=== PATIENT | male | born 1970 | race Caucasian/White ===

== ENCOUNTER 2017-06-30 22:34 | Inpatient (IN) | payer SELFPAY ==
[~2017-06-30] VITALS: Ht 172.7 cm; Wt 120.0 kg
[2017-06-30 22:35] VITALS: BP 129/79; PULSE 112; RESP 18; TEMP 100.1; O2SAT 96
[2017-06-30] MEDS ORDERED: SODIUM CHLOR 0.9% 1000 ML INJ 1,000 ML IV ONE (23:15)
[2017-06-30] MEDS ORDERED: MORPHINE SULFATE 4 MG/ML INJ IV PUSH ONE (23:15)
[2017-06-30] MEDS ORDERED: ONDANSETRON HCL 4 MG/2 ML VIAL IV ONE (23:15)
--- NOTE | 2017-06-30 23:30 | PD ---
HPI Chief Complaint: Abdominal Pain Time Seen by Provider: 22:59 Travel History International Travel<30 days: No Contact w/Intl Traveler<30days: No Traveled to known affect area: No History of Present Illness HPI The patient is a 47 year old male who presents to the [facility] emergency department with a history of abdominal pain and he reports began on Saturday. He reports that the pain is coming and going. He reports that the pain is sharp in character. He reports that eating seems to make it worse. He reports the pain is similar to when he had a bacterial colitis in the past. His last BM was Saturday and small. He took magnesium citrate and today had diarrhea x2. He reports having n/v 4-5 x on Saturday. He reports that he has not taken his usual medications over the last 2 days due to nausea. On review of systems, the patient denies any recent fevers, cough, congestion, neck pain, chest pain, shortness of breath, urinary symptoms, or neurologic symptoms. [facility] Past Medical History Narrative Medical The patient's past medical history is significant for hypertension, hyperlipidemia, colitis. Autoimmune Disease: No Cardiovascular Problems: Yes (HTN) High Cholesterol: Yes Headaches: Yes (MIGRAINS) Past Surgical History Narrative Surgical The patient's past surgical history is significant for tonsillectomy and adenoidectomy. Oral Surgery: Yes (TONSILECTOMY, MOLARS REMOVED) Social History Alcohol Use: No Tobacco Use: No Substance Use: No Allergies-Medications (Allergen,Severity, Reaction): Coded Allergies: No Known Allergies (Verified Allergy, Severe, 08/14/04) Reported Meds & Prescriptions Reported Meds & Active Scripts Active Reported Lovastatin 20 Mg Tab 20 Mg PO DAILY Amlodipine (Amlodipine Besylate) 5 Mg Tab 5 Mg PO HS Lisinopril 20 Mg Tab 20 Mg PO DAILY Metformin (Metformin HCl) 500 Mg Tab 500 Mg PO DAILY With a meal Hydrochlorothiazide 25 Mg Tab 25 Mg PO DAILY Topamax (Topiramate) 50 Mg Tab 50 Mg PO BID Review of Systems Except as stated in HPI: all other systems reviewed are Neg General / Constitutional: No: Fever Eyes: No: Visual changes HENT: No: Headaches Cardiovascular: No: Chest Pain or Discomfort Respiratory: No: Shortness of Breath Gastrointestinal: Positive: Nausea, Vomiting, Diarrhea, Abdominal Pain, Constipation, Changes in Bowel Habits, No: Hematemesis, Hematochezia, Indigestion, Loss of Appetite Genitourinary: No: Dysuria Musculoskeletal: No: Pain Skin: No Rash Neurologic: No: Weakness Psychiatric: No: Depression Endocrine: No: Polydipsia Hematologic/Lymphatic: No: Easy Bruising Physical Exam Narrative General: The patient is a well-developed well-nourished male, uncomfortable appearing on arrival, diaphoretic, otherwise in no acute distress. Head and Neck exam: Head is normocephalic atraumatic. Eyes: EOMI, pupils are equal round and reactive to light. Nose: Midline septum with pink mucous membranes Mouth: Dentition unremarkable. Moist mucus membranes. Posterior oropharynx is not erythematous. No tonsillar hypertrophy. Uvula midline. Airway patent. Neck: No palpable lymphadenopathy. No nuchal rigidity. No thyromegaly. Cardiovascular: Sinus tachycardia in the low 100 without murmurs, gallops, or rubs. No pulse deficit to the extremities and simultaneous auscultation and palpation of his radial artery. Lungs: Clear to auscultation bilaterally. No wheezes, rhonchi, or rales. Abdomen: Soft, tenderness on palpation of the right lower quadrant of the abdomen, tenderness is noted on palpation of McBurney's point. No other tenderness on palpation of the other quadrants of the abdomen. Normal bowel sounds are audible. No guarding, rebound, or rigidity. Negative [place] sign. Extremities: No clubbing, cyanosis, or edema. 2+ pulses in all 4 extremities. No calf tenderness on palpation. Back: No costovertebral angle tenderness to palpation. Neurologic Exam: Grossly nonfocal. Skin Exam: No rash noted. Intact skin that is warm and dry. Data Data Last Documented VS Vital Signs Date Time Temp Pulse Resp B/P Pulse Ox O2 Delivery O2 Flow Rate FiO2 06/30/17 22:35 100.1 112 18 129/79 96 Room Air Orders Electrocardiogram (06/30/17 23:06) Complete Blood Count With Diff (06/30/17 23:06) Comprehensive Metabolic Panel (06/30/17 23:06) C-Reactive Protein (Crp) (06/30/17 23:06) Lipase (06/30/17 23:06) Urinalysis - C+S If Indicated (06/30/17 23:06) Westergren Sedimentation Rate (06/30/17 23:06) Magnesium (Mg) (06/30/17 23:06) Chest, Single Ap (06/30/17 23:06) Ct Abd/Pel W Iv Contrast(Rout) (06/30/17 23:06) Iv Access Insert/Monitor (06/30/17 23:06) Ecg Monitoring (06/30/17 23:06) Oximetry (06/30/17 23:06) Drug Screen, Random Urine (06/30/17 23:06) Alcohol (Ethanol) (06/30/17 23:06) Sodium Chlor 0.9% 1000 Ml Inj (Ns 1000 M (06/30/17 23:15) Ondansetron Inj (Zofran Inj) (06/30/17 23:15) Morphine Inj (Morphine Inj) (06/30/17 23:15) Lactic Acid (06/30/17 23:07) Ketorolac Inj (Toradol Inj) (06/30/17 23:45) Piperacil-Tazo 3.375 Gm Premix (Zosyn 3. (07/01/17 00:45) Sodium Chlorid 0.9% 500 Ml Inj (Ns 500 M (07/01/17 00:45) Iohexol 350 Inj (Omnipaque 350 Inj) (07/01/17 00:52) Morphine Inj (Morphine Inj) (07/01/17 01:30) Admit Order (Ed Use Only) (07/01/17 01:30) Labs Laboratory Tests Test 06/30/17 06/30/17 23:15 23:40 White Blood Count 16.5 TH/MM3 Red Blood Count 5.65 MIL/MM3 Hemoglobin 16.0 GM/DL Hematocrit 47.2 % Mean Corpuscular Volume 83.5 FL Mean Corpuscular Hemoglobin 28.2 PG Mean Corpuscular Hemoglobin 33.8 % Concent Red Cell Distribution Width 14.3 % Platelet Count 258 TH/MM3 Mean Platelet Volume 10.7 FL Neutrophils (%) (Auto) 88.3 % Lymphocytes (%) (Auto) 4.5 % Monocytes (%) (Auto) 7.1 % Eosinophils (%) (Auto) 0.0 % Basophils (%) (Auto) 0.1 % Neutrophils # (Auto) 14.6 TH/MM3 Lymphocytes # (Auto) 0.7 TH/MM3 Monocytes # (Auto) 1.2 TH/MM3 Eosinophils # (Auto) 0.0 TH/MM3 Basophils # (Auto) 0.0 TH/MM3 CBC Comment DIFF FINAL Differential Comment Lactic Acid Level 1.6 mmol/L Erythrocyte Sedimentation Rate 3 mm/hr Sodium Level 137 MEQ/L Potassium Level 4.0 MEQ/L Chloride Level 105 MEQ/L Carbon Dioxide Level 23.8 MEQ/L Anion Gap 8 MEQ/L Blood Urea Nitrogen 12 MG/DL Creatinine 1.13 MG/DL Estimat Glomerular Filtration 70 ML/MIN Rate Random Glucose 136 MG/DL Calcium Level 9.3 MG/DL Magnesium Level 2.8 MG/DL Total Bilirubin 0.8 MG/DL Aspartate Amino Transf 15 U/L (AST/SGOT) Alanine Aminotransferase 33 U/L (ALT/SGPT) Alkaline Phosphatase 57 U/L C-Reactive Protein 23.80 MG/DL Total Protein 8.0 GM/DL Albumin 4.2 GM/DL Lipase 98 U/L Ethyl Alcohol Level LESS THAN 3 MG/DL Urine Color YELLOW Urine Turbidity HAZY Urine pH 7.5 Urine Specific [place] 1.015 Urine Protein 30 mg/dL Urine Glucose (UA) NEG mg/dL Urine Ketones NEG mg/dL Urine Occult Blood NEG Urine Nitrite NEG Urine Bilirubin NEG Urine Urobilinogen LESS THAN 2.0 MG/DL Urine Leukocyte Esterase NEG Urine RBC 1 /hpf Urine WBC 2 /hpf Urine Squamous Epithelial <1 /hpf Cells Urine Amorphous Sediment RARE Urine Mucus FEW /lpf Microscopic Urinalysis Comment CULT NOT INDICATED Urine Opiates Screen NEG Urine Barbiturates Screen NEG Urine Amphetamines Screen NEG Urine Benzodiazepines Screen NEG Urine Cocaine Screen NEG Urine Cannabinoids Screen NEG [facility] Medical Decision Making Medical Screen Exam Complete: Yes Emergency Medical Condition: Yes Medical Record Reviewed: Yes Interpretation(s) Last Impressions Chest X-Ray 06/30/172305 Signed Impressions: Service Date/Time: Friday, June 30, 2017 23:10 - CONCLUSION: No acute disease. Álvaro Franco MD Abdomen/Pelvis CT 06/30/172305 Signed Impressions: Service Date/Time: Saturday, July 01, 2017 00:39 - CONCLUSION: 1. Acute appendicitis with inflammatory change in the right lower quadrant with abnormal tubular structure with multiple calcified appendicoliths. There is no free air or drainable fluid collection. 2. Mild ileus bowel gas pattern. 3. Mild hepatic steatosis. Álvaro Franco MD Differential Diagnosis Appendicitis, versus diverticulitis, versus colitis, versus pyelonephritis, versus kidney stone Narrative Course During the course of the patients emergency department visit, the patients history, examination, and differential diagnosis were reviewed with the patient. The patient had IV access obtained and blood work sent for analysis. The patient was placed on a school bus monitor with oximetry and blood pressure monitoring. An ECG was done on arrival. The patient's ECG reveals a sinus rhythm heart rate of 98, nonspecific T-wave abnormalities, no acute ST segment elevation or depression. The patient was initially provided normal saline 1 L IV fluid bolus, morphine 4 g IV, Zofran formal grams IV. The patient continued pain and was given Toradol 15 mg IV. The patients laboratory studies were reviewed and remarkable for a white count of 16.5, hemoglobin 16, platelets 258 with 88.3 neutrophils, lymphocytes 4.5, sedimentation rate is 3. CMP is remarkable for a GFR 70, glucose 136, magnesium 2.8, lipase 98, C-reactive protein 23.8, lactic acid 1.6, urine drug screen is negative, alcohol less than 3, urinalysis shows 30 protein otherwise unremarkable. Radiology studies were reviewed and remarkable for a chest x-ray that shows no acute disease. CT scan of the abdomen and pelvis shows acute appendicitis with inflammatory changes in the right lower quadrant with abnormal tubular structure with multiple calcified appendicoliths. There is no free air or drainable fluid collection. Mild ileus bowel gas pattern, mild hepatic steatosis. The patient was given Zosyn 3.375 g IV. The patients results were discussed with the patient, including the plan of care. I explained that further testing and/ or monitoring is indicated based on the patients history, examination, and/ or laboratory findings. Therefore, I recommended admission for additional evaluation. The patient expressed understanding and was agreeable with this plan. The patient was admitted to the hospital in stable condition and sent to a bed under the care of the general surgeon. Physician Communication Physician Communication The patient's case is discussed with Dr. Edwards who did agree to admit the patient for further evaluation and treatment at this time. Diagnosis Primary Impression: Appendicitis Qualified Code: K35.3 - Acute appendicitis with localized peritonitis Admitting Information Admitting Physician Requests: Rebecca Smiley MD Jun 30, 2017 23:30
[2017-06-30 23:39] LABS: AUTOMATED NEUTROPHIL # 14.6 TH/MM3 (1.8-7.7); BASOPHIL % 0.1 % (0.0-2.0); HEMATOCRIT 47.2 % (39.0-51.0); HEMO FLAGS DIFF FINAL; LYMPH % 4.5 % (9.0-44.0); LYMPHOCYTE # 0.7 TH/MM3 (1.0-4.8); MEAN CELL VOLUME 83.5 FL (80.0-100.0); MEAN CORPUSCULAR HEMOGLOBIN 28.2 PG (27.0-34.0); MEAN CORPUSCULAR HGB CONC 33.8 % (32.0-36.0); MONO % 7.1 % (0.0-8.0); NEUT % 88.3 % (16.0-70.0); PLATELET COUNT 258 TH/MM3 (150-450); RED BLOOD COUNT 5.65 MIL/MM3 (4.50-5.90); RED CELL DISTRIBUTION WIDTH 14.3 % (11.6-17.2); WHITE BLOOD COUNT 16.5 TH/MM3 (4.0-11.0)
--- NOTE | 2017-06-30 23:40 | RADRPT ---
EXAM DATE/TIME: 06/30/2017 23:10 [facility] COMPARISON: No previous studies available for comparison. INDICATIONS : RLQ pain with lightheadedness and sweats. MEDICAL HISTORY : None. SURGICAL HISTORY : None. ENCOUNTER: Initial ACUITY: 1 day PAIN SCORE: 6/10 LOCATION: Bilateral chest FINDINGS: 2 AP erect portable views of the chest demonstrates a Midinspiratory view with symmetric aerated with out evidence of mass, infiltrate or effusion. Patient is rotated to the left. The study is apical trini dotic in technique. The cardiomediastinal contours are unremarkable. Osseous structures are intact. There is apparent eventration of the right hemidiaphragm. CONCLUSION: No acute disease. Álvaro Franco MD on June 30, 2017 at 23:37 Board Certified Radiologist. This report was verified electronically.
[2017-06-30] MEDS ORDERED: KETOROLAC TROMETHAMINE 30 MG/ML (IVP) VIAL IV PUSH ONE (23:45)
[2017-07-01] VITALS (8 sets, daily range): BP systolic 109–125; BP diastolic 55–78; PULSE 93–109; RESP 17–20; TEMP 95.9–99.1; O2SAT 93–97
[2017-07-01 00:05] LABS: ALT (GPT) 33 U/L (12-78); ANION GAP 8 MEQ/L (5-15); AST (GOT) 15 U/L (15-37); BICARBONATE 23.8 MEQ/L (21.0-32.0); BLOOD UREA NITROGEN 12 MG/DL (7-18); CHLORIDE 105 MEQ/L (98-107); GLOMERULAR FILTRATION RATE 70 ML/MIN (>89); MAGNESIUM 2.8 MG/DL (1.5-2.5); SODIUM (NA) 137 MEQ/L (136-145)
[2017-07-01 00:08] LABS: BLOOD, URINE NEG (NEG); COMMENT (UR) CULT NOT INDICATED; CULTURE IF INDICATED CULT NOT INDICATED; GLUCOSE,URINE NEG (NEG); KETONE, URINE NEG (NEG); MUCUS URINE FEW /lpf (OCC); NITRITE,URINE NEG (NEG); PH, URINE 7.5 (5.0-8.5); SQUAMOUS EPITHELIAL CELL URINE <1 /hpf (0-5); URINE COLOR YELLOW (YELLW/STRAW)
[2017-07-01 00:10] LABS: AMPHETAMINE, URINE NEG (NEG); BARBITURATES, URINE NEG (NEG); COCAINE, URINE NEG (NEG)
[2017-07-01 00:12] LABS: ALKALINE PHOSPHATASE 57 U/L (45-117); TOTAL BILIRUBIN ADULT 0.8 MG/DL (0.2-1.0)
[2017-07-01] MEDS ORDERED: PIPERACIL-TAZO 3.375 GM PREMIX 50 ML IV ONE (00:45)
[2017-07-01] MEDS ORDERED: SODIUM CHLORID 0.9% 500 ML INJ 500 ML IV ONE (00:45)
[2017-07-01] MEDS ORDERED: IOHEXOL 350 MG/ML 10 ML VIAL (for RAD DIAG) IV ONE (00:52)
--- NOTE | 2017-07-01 01:13 | RADRPT ---
EXAM DATE/TIME: 07/01/2017 00:39 [facility] COMPARISON: No previous studies available for comparison. INDICATIONS : Right sided abdominal pain. IV CONTRAST: 95 cc Omnipaque 350 (iohexol) IV ORAL CONTRAST: No oral contrast ingested. RADIATION DOSE: 25.15 CTDIvol (mGy) ; Patient body habitus MEDICAL HISTORY : Hypertension. SURGICAL HISTORY : None. ENCOUNTER: Initial ACUITY: 1 day PAIN SCALE: 4/10 LOCATION: Right abdomen TECHNIQUE: Volumetric scanning of the abdomen and pelvis was performed. Using automated exposure control and ad justment of the mA and/or kV according to patient size, radiation dose was kept as low as reasonably achievable to obtain optimal diagnostic quality images. DICOM format image data is available electro nically for review and comparison. FINDINGS: LOWER LUNGS: The visualized lower lungs are clear. LIVER: Homogeneous density without lesion. There is no dilation of the biliary tree. No calcified gallston es. The gallbladder is at the upper limits of normal in size. There is mild ataxia ptosis. SPLEEN: Normal size without lesion. PANCREAS: Within normal limits. KIDNEYS: Normal in size and shape. There is no mass, stone or hydronephrosis. ADRENAL GLANDS: Within normal limits. VASCULAR: There is no aortic aneurysm. BOWEL/MESENTERY: There is inflammatory change in the right lower quadrant with abnormal tubular structure distending f rom the cecum with multiple calcifications. This measures up to approximately 1.7 cm in diameter. The re is no free air or drainable fluid collection liquid stool is noted in the right colon with multipl e air-fluid levels. ABDOMINAL WALL: Within normal limits. RETROPERITONEUM: There is no lymphadenopathy. BLADDER: No wall thickening or mass. REPRODUCTIVE: Within normal limits. INGUINAL: There is no lymphadenopathy or hernia. MUSCULOSKELETAL: Within normal limits for patient age. CONCLUSION: 1. Acute appendicitis with inflammatory change in the right lower quadrant with abnormal tubular stru cture with multiple calcified appendicoliths. There is no free air or drainable fluid collection. 2. Mild ileus bowel gas pattern. 3. Mild hepatic steatosis. Álvaro Franco MD on July 01, 2017 at 1:08 Board Certified Radiologist. This report was verified electronically.
[2017-07-01] MEDS ORDERED: TOPA50TA7 PO (01:27)
[2017-07-01] MEDS ORDERED: AMLO5TAB2 PO (01:27)
[2017-07-01] MEDS ORDERED: METF500T PO (01:27)
[2017-07-01] MEDS ORDERED: LOVA20TA PO (01:27)
[2017-07-01] MEDS ORDERED: HYDR25TA5 PO (01:27)
[2017-07-01] MEDS ORDERED: LISI-515 PO (01:27)
[2017-07-01] MEDS ORDERED: MORPHINE SULFATE 4 MG/ML INJ IV PUSH ONE (01:30)
[2017-07-01] MEDS ORDERED: ONDANSETRON HCL 4 MG/2 ML VIAL IV PRN (02:00)
[2017-07-01] MEDS ORDERED: SODIUM CHLORIDE 0.9% FLUSH 10 ML FLUSH IV FLUSH PRN (02:00)
[2017-07-01] MEDS ORDERED: MORPHINE SULFATE 4 MG/ML INJ IV PUSH PRN (02:00)
[2017-07-01] MEDS: SODIUM CHLOR 0.9% 1000 ML INJ 1,000 ML IV SCH ×4 (02:19→19:35)
[2017-07-01] MEDS ORDERED: CHLORHEXIDINE GLUCONATE 2 % 1 PACK (2 CLOTHS) TOPICAL PRN (05:15)
[2017-07-01] MEDS ORDERED: SODIUM CHLORID 0.9% 500 ML IV PRN (05:15)
[2017-07-01] MEDS ORDERED: LACTATED RINGER'S 1000 ML IV PRN (05:15)
[2017-07-01] MEDS ORDERED: INSULIN HUMAN REGULAR 1,000 UNITS/10 ML VIAL SQ PRN (05:15)
[2017-07-01] MEDS ORDERED: POVIDONE IODINE 5% (ANTISEPSIS KIT) 4 APPLICATIONS EACH NARE PRN (05:15)
[2017-07-01] MEDS ORDERED: BUPIVACAINE/EPINEPHRINE 0.25% 50 ML VIAL ONE (05:47)
--- NOTE | 2017-07-01 06:29 | HHI.HP ---
HPI Service General Surgery Primary Care Physician No Primary Care Physician Admission Diagnosis Appendicitis Chief Complaint: Abdominal pain History of Present Illness Mr. Claudio is a 47 yo M who presents with abdominal pain present since Saturday associated with nausea and emesis. It is currently localized in the right lower quadrant. He has had some sort of bacterial GI infection in the past and thought that this was occurring; however, the pain persisted and he presented to the emergency department. He was noted to have leukocytosis and right lower quadrant tenderness. CT scan of the abdomen and pelvis reveals acute appendicitis. He denies past surgical history on the abdomen. His son underwent appendectomy here in 3 or 4 months ago. Review of Systems Constitutional: DENIES: Fever, Chills Eyes: DENIES: Eye inflammation, Eye pain Ears, nose, mouth, throat: DENIES: Throat pain, Hoarseness Respiratory: DENIES: Cough, Shortness of breath Cardiovascular: DENIES: Chest pain, Palpitations Gastrointestinal: COMPLAINS OF: Abdominal pain, Nausea Integumentary: DENIES: Pruritus, Rash Neurologic: DENIES: Seizures, Tremor Past Family Social History Past Medical History Obesity Hypertension Hyperlipidemia Past Surgical History Tonsillectomy Reported Medications Reported Meds & Active Scripts Active Reported Lovastatin 20 Mg Tab 20 Mg PO DAILY Amlodipine (Amlodipine Besylate) 5 Mg Tab 5 Mg PO HS Lisinopril 20 Mg Tab 20 Mg PO DAILY Metformin (Metformin HCl) 500 Mg Tab 500 Mg PO DAILY With a meal Hydrochlorothiazide 25 Mg Tab 25 Mg PO DAILY Topamax (Topiramate) 50 Mg Tab 50 Mg PO BID Allergies: Coded Allergies: No Known Allergies (Verified Allergy, Severe, 08/14/04) Active Ordered Medications Current Medications Medications (Trade) Dose Ordered Sig/Rambo Route Start Time Stop Time Status Last Admin (NS 1000 ml Inj) 1,000 ml @ 100 mls/hr Q10H IV 07/01/17 01:47 07/01/17 02:19 (NS Flush) 2 ml UNSCH PRN IV FLUSH 07/01/17 02:00 Sodium Chloride 2 ml 2 ml BID IV FLUSH 07/01/17 09:00 (Zosyn 3.375 Gm Premix) 50 ml @ 100 mls/hr Q6H IV 07/01/17 08:00 (Zofran Inj) 4 mg Q6H PRN IV 07/01/17 02:00 Morphine Sulfate 4 mg 4 mg Q3H PRN IV PUSH 07/01/17 02:00 Lactated Ringer's 1,000 ml @ 30 mls/hr Q24H PRN IV 07/01/17 05:15 07/04/17 05:14 (NS 500 ml Inj) 500 ml @ 30 mls/hr [id number] PRN IV 07/01/17 05:15 07/04/17 05:14 Family History Noncontributory. His son had an appendectomy 3 or 4 months ago. Social History No alcohol tobacco or drug use. Physical Exam Vital Signs Vital Signs Date Time Temp Pulse Resp B/P Pulse Ox O2 Delivery O2 Flow Rate FiO2 07/01/17 04:08 96.8 109 20 125/76 97 07/01/17 02:28 107 18 122/55 94 Room Air 06/30/17 22:35 100.1 112 18 129/79 96 Room Air Physical Exam GENERAL: Awake and alert. No acute distress. Cooperative. Obese HEAD: Normocephalic. Atraumatic. EYES: Pupils equal round and reactive to light bilaterally. No scleral icterus. CHEST: Lungs clear to auscultation bilaterally with no wheezing or rhonchi. No respiratory distress. CARDIOVASCULAR: Sinus tachycardia ABDOMEN: Mild diffuse tenderness with severe tenderness in the right lower quadrant. Soft. EXTREMITIES: No cyanosis or edema. SKIN: Warm, dry, nonjaundiced. Laboratory Laboratory Tests Test 06/30/17 06/30/17 23:15 23:40 White Blood Count 16.5 Red Blood Count 5.65 Hemoglobin 16.0 Hematocrit 47.2 Mean Corpuscular Volume 83.5 Mean Corpuscular Hemoglobin 28.2 Mean Corpuscular Hemoglobin 33.8 Concent Red Cell Distribution Width 14.3 Platelet Count 258 Mean Platelet Volume 10.7 Neutrophils (%) (Auto) 88.3 Lymphocytes (%) (Auto) 4.5 Monocytes (%) (Auto) 7.1 Eosinophils (%) (Auto) 0.0 Basophils (%) (Auto) 0.1 Neutrophils # (Auto) 14.6 Lymphocytes # (Auto) 0.7 Monocytes # (Auto) 1.2 Eosinophils # (Auto) 0.0 Basophils # (Auto) 0.0 CBC Comment DIFF FINAL Differential Comment Lactic Acid Level 1.6 Erythrocyte Sedimentation Rate 3 Sodium Level 137 Potassium Level 4.0 Chloride Level 105 Carbon Dioxide Level 23.8 Anion Gap 8 Blood Urea Nitrogen 12 Creatinine 1.13 Estimat Glomerular Filtration 70 Rate Random Glucose 136 Calcium Level 9.3 Magnesium Level 2.8 Total Bilirubin 0.8 Aspartate Amino Transf 15 (AST/SGOT) Alanine Aminotransferase 33 (ALT/SGPT) Alkaline Phosphatase 57 C-Reactive Protein 23.80 Total Protein 8.0 Albumin 4.2 Lipase 98 Ethyl Alcohol Level LESS THAN 3 Urine Color YELLOW Urine Turbidity HAZY Urine pH 7.5 Urine Specific [place] 1.015 Urine Protein 30 Urine Glucose (UA) NEG Urine Ketones NEG Urine Occult Blood NEG Urine Nitrite NEG Urine Bilirubin NEG Urine Urobilinogen LESS THAN 2.0 Urine Leukocyte Esterase NEG Urine RBC 1 Urine WBC 2 Urine Squamous Epithelial <1 Cells Urine Amorphous Sediment RARE Urine Mucus FEW Microscopic Urinalysis Comment CULT NOT INDICATED Urine Opiates Screen NEG Urine Barbiturates Screen NEG Urine Amphetamines Screen NEG Urine Benzodiazepines Screen NEG Urine Cocaine Screen NEG Urine Cannabinoids Screen NEG Result Diagram: 06/30/17231406/30/172314 Imaging Last Impressions Chest X-Ray 06/30/172305 Signed Impressions: Service Date/Time: Friday, June 30, 2017 23:10 - CONCLUSION: No acute disease. Álvaro Franco MD Abdomen/Pelvis CT 06/30/172305 Signed Impressions: Service Date/Time: Saturday, July 01, 2017 00:39 - CONCLUSION: 1. Acute appendicitis with inflammatory change in the right lower quadrant with abnormal tubular structure with multiple calcified appendicoliths. There is no free air or drainable fluid collection. 2. Mild ileus bowel gas pattern. 3. Mild hepatic steatosis. Álvaro Franco MD Assessment and Plan Assessment and Plan 47-year-old male who has evaluation consistent with acute appendicitis. Recommend to proceed to the operating room for laparoscopic possible open appendectomy. I discussed the details and risks of the procedure with the patient and he desires to proceed. Aaron Edwards MD Jul 01, 2017 06:29
[2017-07-01] MEDS ORDERED: ACETAMINOPHEN 1000 MG/100 ML VIAL IV ONE (06:41)
[2017-07-01] MEDS: PIPERACIL-TAZO 3.375 GM PREMIX 50 ML IV SCH ×3 (06:43→19:35)
[2017-07-01] MEDS ORDERED: VASOPRESSIN INJ 20 UNITS/ML VIAL ONE (07:07)
[2017-07-01] MEDS ORDERED: DO NOT ADM ANY ANTICOAGULANT DRUGS PRN (08:34)
[2017-07-01] MEDS ORDERED: MORPHINE SULFATE 4 MG/ML INJ ONE (08:39)
[2017-07-01] MEDS ORDERED: fentaNYL CITRATE 250 MCG/5 ML AMP ONE (08:39)
[2017-07-01] MEDS ORDERED: MIDAZOLAM HCL 2 MG/2 ML VIAL ONE (08:39)
[2017-07-01] MEDS: SODIUM CHLORIDE 0.9% FLUSH 10 ML FLUSH IV FLUSH SCH ×2 (09:00→19:35)
[2017-07-01] MEDS ORDERED: NEOSTIGMINE 3 MG/3 ML SYR IV ONE (12:00)
[2017-07-01] MEDS ORDERED: ePHEDrine/NS 25 MG/5 ML SYR IV ONE (12:00)
[2017-07-01] MEDS ORDERED: ONDANSETRON HCL 4 MG/2 ML VIAL IV PUSH ONE (12:00)
[2017-07-01] MEDS ORDERED: LACTATED RINGER'S 1000 ML INJ 1,000 ML IV ONE (12:00)
[2017-07-01] MEDS ORDERED: PROPOFOL 200 MG/20 ML AMP IV ONE (12:00)
[2017-07-01] MEDS ORDERED: PHENYLEPH/NS 1000 MCG/10 ML SYR IV ONE (12:00)
--- NOTE | 2017-07-01 14:06 | EKG ---
Date Performed: 06/30/2017 Time Performed: 23:29:50 PTAGE: 47 years EKG: Sinus rhythm NONSPECIFIC T-WAVE ABNORMALITY BORDERLINE ECG NO PREVIOUS TRACING DOCTOR: Nghia Parikh Interpretating Date/Time 07/01/2017 14:04:49
[2017-07-01] MEDS ORDERED: oxyCODONE/ACETAMINOPHEN 5 MG/325 MG TAB PO PRN (15:00)
[2017-07-01] MEDS: oxyCODONE/ACETAMINOPHEN 5 MG/325 MG TAB PO PRN ×3 (15:49→23:14)
[2017-07-01] MEDS ORDERED: SODIUM CHLOR 0.9% 1000 ML INJ 1,000 ML IV SCH (19:30)
[2017-07-02] MEDS: oxyCODONE/ACETAMINOPHEN 5 MG/325 MG TAB PO PRN ×4 (03:02→18:09)
[2017-07-02] MEDS: PIPERACIL-TAZO 3.375 GM PREMIX 50 ML IV SCH ×4 (03:02→21:43)
[2017-07-02 04:16] VITALS: BP 113/74; PULSE 89; RESP 18; TEMP 98.9; O2SAT 95
[2017-07-02] MEDS: SODIUM CHLOR 0.9% 1000 ML INJ 1,000 ML IV SCH ×3 (05:46→21:42)
[2017-07-02 08:00] VITALS: BP 125/80; PULSE 89; RESP 18; TEMP 96.3; O2SAT 96
[2017-07-02] MEDS: SODIUM CHLORIDE 0.9% FLUSH 10 ML FLUSH IV FLUSH SCH ×2 (08:17→21:43)
[2017-07-02 09:16] VITALS: O2SAT 93
--- NOTE | 2017-07-02 09:54 | HHI.PR ---
Subjective Subjective Notes No N/V. C/o pain. No flatus. Yadi clears. Objective Vitals/I&O Vital Signs Date Time Temp Pulse Resp B/P Pulse Ox O2 Delivery O2 Flow Rate FiO2 07/02/17 09:16 93 Nasal Cannula 2.00 07/02/17 08:00 96.3 89 18 125/80 Radiology Last Impressions Chest X-Ray 06/30/172305 Signed Impressions: Service Date/Time: Friday, June 30, 2017 23:10 - CONCLUSION: No acute disease. Álvaro Franco MD Abdomen/Pelvis CT 06/30/172305 Signed Impressions: Service Date/Time: Saturday, July 01, 2017 00:39 - CONCLUSION: 1. Acute appendicitis with inflammatory change in the right lower quadrant with abnormal tubular structure with multiple calcified appendicoliths. There is no free air or drainable fluid collection. 2. Mild ileus bowel gas pattern. 3. Mild hepatic steatosis. Álvaro Franco MD Narrative Exam NAD Abd: distended, post op ttp, inc c/d/i, [id number] ss cloudy drainage A/P Assessment and Plan 47 yo M POD 1 s/p lap appy for perforated appendicitis with generalized peritonitis Stable. No bowel fxn yet. Significant pain. No changes today. Needs to ambulate in halls. Cont IVF, IV antibiotics, clears. DVT proph: SCDs. Lovenox. Aaron Edwards MD Jul 02, 2017 09:54
--- NOTE | 2017-07-02 10:35 | PD.OP ---
cc: Aaron Edwards MD Operative Report Date of Surgery: Jul 01, 2017 Preoperative Diagnosis: (1) Appendicitis Postoperative Diagnosis: (1) Appendicitis, acute, with generalized peritonitis Procedure: Laparoscopic appendectomy with intrabdominal washout and drain placement Anesthesia: GAVIOTA Surgeon: Aaron Edwards Water Resource Consultant(s): Ermias WELLS Operation and Findings: EBL: 5 cc Complications: None apparent Operative findings: The patient had perforation of the appendix and gangrene. There was diffuse purulent peritonitis. There is significant amount of exudative material throughout the abdomen. There was early adhesions between small bowel and omentum. The abdomen was irrigated with 6 L of warm normal saline. All adhesions and loculations were broken up. Procedure in detail: The patient was taken to the operating room placed in the supine position with left arm tucked. General endotracheal anesthesia was induced and the abdomen was prepped and draped in usual sterile fashion. Surgical timeout was performed to verify correct patient procedure and site. Perioperative antibiotics were administered as necessary. Local anesthetic was injected in the skin and subcutaneous tissue at the inferior umbilicus and a 5 mm incision made. Using the 5 mm Optiview trocar with laparoscope the abdomen was directly entered. Was then insufflated to 15 mmHg with CO2 gas which the patient tolerated well. The patient was then placed in Trendelenburg position and turned slightly to the left. A 12 mm port was placed under laparoscopic visualization of the left lower abdomen and a 5 mm port in the suprapubic area. There was evidence of generalized peritonitis with purulent cloudy fluid throughout the abdomen and large amount of exudative material. In the right abdomen the appendix was noted adherent to the ascending colon and in the lateral abdominal wall. This was gently bluntly . The mesoappendix was identified and divided with the Harmonic scalpel. The appendix was frankly perforated near the base. After clearing the area carefully at the base of the appendix and its junction with the cecum was able to get 2 #[address] The appendix was divided and removed from the abdomen using an Endo Catch bag. The appendiceal stump was intact with no leakage. The abdomen was copiously irrigated with 6 L of warm normal saline and all loculations and adhesions were carefully broken up. A 19 Japanese round channel drain was placed through the inferior port site incision into the right lower quadrant and pelvis and secured with 3-0 nylon suture. The abdomen was allowed to desufflate and trochars were removed. The fascia at the 12 mm port site was closed with a single 0 Vicryl suture. Skin closed with subcuticular Monocryl as well as Dermabond. The patient tolerated the procedure well was extubated and taken to PACU in stable condition. Aaron Edwards MD Jul 02, 2017 10:35
[2017-07-02 12:00] VITALS: BP 114/74; PULSE 87; RESP 17; TEMP 98.3; O2SAT 93
[2017-07-02] MEDS: ENOXAPARIN SODIUM 40 MG/0.4 ML SYRINGE SQ SCH (12:34)
[2017-07-02 16:00] VITALS: BP 117/76; PULSE 98; RESP 18; TEMP 96.7; O2SAT 92
[2017-07-02 20:00] VITALS: BP 131/79; PULSE 89; RESP 16; TEMP 96.2; O2SAT 92
[2017-07-03] VITALS: BP 132/76; PULSE 90; RESP 16; TEMP 97.6; O2SAT 97
[2017-07-03] MEDS: PIPERACIL-TAZO 3.375 GM PREMIX 50 ML IV SCH ×4 (01:00→20:09)
[2017-07-03] MEDS: oxyCODONE/ACETAMINOPHEN 5 MG/325 MG TAB PO PRN (01:01)
[2017-07-03 04:00] VITALS: BP 139/85; PULSE 97; RESP 17; TEMP 96.4; O2SAT 98
[2017-07-03] MEDS: CALCIUM CARBONATE 500 MG CHEWABLE TAB CHEW PRN ×2 (07:49→22:26)
[2017-07-03] MEDS: SODIUM CHLOR 0.9% 1000 ML INJ 1,000 ML IV SCH ×2 (07:50→15:35)
[2017-07-03] MEDS: SODIUM CHLORIDE 0.9% FLUSH 10 ML FLUSH IV FLUSH SCH ×2 (07:55→20:09)
[2017-07-03 08:00] VITALS: BP 147/87; PULSE 87; RESP 16; TEMP 96.7; O2SAT 98
[2017-07-03] MEDS: ENOXAPARIN SODIUM 40 MG/0.4 ML SYRINGE SQ SCH (10:54)
[2017-07-03 10:56] VITALS: BP 150/91; PULSE 103; RESP 17; TEMP 98.3; O2SAT 94
[2017-07-03] MEDS: MORPHINE SULFATE 4 MG/ML INJ IV PUSH PRN ×2 (11:02→15:40)
--- NOTE | 2017-07-03 11:15 | HHI.PR ---
Subjective Subjective Notes Uncomfortable today and bloated. Nausea with PO meds. He has had some flatus and a BM. Objective Vitals/I&O Vital Signs Date Time Temp Pulse Resp B/P Pulse Ox O2 Delivery O2 Flow Rate FiO2 07/03/17 10:56 98.3 103 17 150/91 94 07/02/17 09:16 Nasal Cannula 2.00 Radiology Last Impressions Chest X-Ray 06/30/172305 Signed Impressions: Service Date/Time: Friday, June 30, 2017 23:10 - CONCLUSION: No acute disease. Álvaro Franco MD Abdomen/Pelvis CT 06/30/172305 Signed Impressions: Service Date/Time: Saturday, July 01, 2017 00:39 - CONCLUSION: 1. Acute appendicitis with inflammatory change in the right lower quadrant with abnormal tubular structure with multiple calcified appendicoliths. There is no free air or drainable fluid collection. 2. Mild ileus bowel gas pattern. 3. Mild hepatic steatosis. Álvaro Franco MD Narrative Exam NAD Abd: significantly distended, post op ttp, inc c/d/i, KRZYSZTOF ss cloudy drainage A/P Assessment and Plan 47 yo M POD 2 s/p lap appy for perforated appendicitis with generalized peritonitis Persistent ileus. Reglan. Simethicone. Cont IVF, IV antibiotics, clears. DVT proph: SCDs. Lovenox. Aaron Edwards MD Jul 03, 2017 11:15
[2017-07-03] MEDS: SIMETHICONE 80 MG CHEWABLE TAB CHEW PRN ×2 (13:09→15:35)
[2017-07-03] MEDS: METOCLOPRAMIDE HCL 10 MG/2 ML VIAL IV PUSH SCH ×2 (13:09→20:09)
[2017-07-03 15:32] VITALS: BP 146/93; PULSE 101; RESP 16; TEMP 98.9; O2SAT 95
[2017-07-03 20:30] VITALS: BP 151/98; PULSE 95; RESP 18; TEMP 97.1; O2SAT 99
[2017-07-04 00:15] VITALS: BP 152/87; PULSE 98; RESP 18; TEMP 98.8; O2SAT 98
[2017-07-04] MEDS: PIPERACIL-TAZO 3.375 GM PREMIX 50 ML IV SCH ×4 (01:18→20:33)
[2017-07-04] MEDS: METOCLOPRAMIDE HCL 10 MG/2 ML VIAL IV PUSH SCH ×3 (04:53→20:33)
[2017-07-04 07:42] LABS: AUTOMATED NEUTROPHIL # 7.1 TH/MM3 (1.8-7.7); BASOPHIL % 0.2 % (0.0-2.0); EOSINOPHIL # 0.2 TH/MM3 (0-0.4); EOSINOPHIL % 1.7 % (0.0-4.0); HEMATOCRIT 37.5 % (39.0-51.0); LYMPH % 8.7 % (9.0-44.0); LYMPHOCYTE # 0.8 TH/MM3 (1.0-4.8); MEAN CELL VOLUME 83.3 FL (80.0-100.0); MEAN CORPUSCULAR HEMOGLOBIN 28.1 PG (27.0-34.0); MEAN CORPUSCULAR HGB CONC 33.7 % (32.0-36.0); MONO % 9.9 % (0.0-8.0); NEUT % 79.5 % (16.0-70.0); PLATELET COUNT 277 TH/MM3 (150-450); RED CELL DISTRIBUTION WIDTH 14.3 % (11.6-17.2); WHITE BLOOD COUNT 8.9 TH/MM3 (4.0-11.0)
[2017-07-04 07:51] LABS: HEMO FLAGS AUTO DIFF
[2017-07-04 08:00] VITALS: BP 136/83; PULSE 93; RESP 18; TEMP 99.5; O2SAT 94
[2017-07-04 08:07] LABS: BICARBONATE 26.2 MEQ/L (21.0-32.0); POTASSIUM 3.4 MEQ/L (3.5-5.1)
[2017-07-04] MEDS: SODIUM CHLORIDE 0.9% FLUSH 10 ML FLUSH IV FLUSH SCH ×2 (09:00→20:34)
[2017-07-04 10:26] LABS: BANDS 5 % (0-6); NEUTROPHIL # MANUAL DIFF 7.3 TH/MM3 (1.8-7.7); PLATELET ESTIMATE SMEAR NORMAL (NORMAL); PLATELET MORPHOLOGY NORMAL (NORMAL); POLYS (SEG NEUTROPHILS) 77 % (16-70); SCAN/DIFF FINAL DIFF MANUAL; WBC DIFF SAMPLE 100
[2017-07-04] MEDS: SODIUM CHLOR 0.9% 1000 ML INJ 1,000 ML IV SCH ×2 (10:53→20:41)
[2017-07-04 12:00] VITALS: BP 139/86; PULSE 112; RESP 18; TEMP 97.6; O2SAT 94
--- NOTE | 2017-07-04 12:18 | HHI.PR ---
Subjective Subjective Notes Min flatus. Yadi clears. Feels very bloated but overall somewhat better. Objective Vitals/I&O Vital Signs Date Time Temp Pulse Resp B/P Pulse Ox O2 Delivery O2 Flow Rate FiO2 07/04/17 08:00 99.5 93 18 136/83 94 07/02/17 09:16 Nasal Cannula 2.00 Labs Laboratory Tests Test 07/04/17 07:03 White Blood Count 8.9 Red Blood Count 4.50 Hemoglobin 12.6 Hematocrit 37.5 Mean Corpuscular Volume 83.3 Mean Corpuscular Hemoglobin 28.1 Mean Corpuscular Hemoglobin 33.7 Concent Red Cell Distribution Width 14.3 Platelet Count 277 Mean Platelet Volume 9.2 Neutrophils (%) (Auto) 79.5 Lymphocytes (%) (Auto) 8.7 Monocytes (%) (Auto) 9.9 Eosinophils (%) (Auto) 1.7 Basophils (%) (Auto) 0.2 Neutrophils # (Auto) 7.1 Lymphocytes # (Auto) 0.8 Monocytes # (Auto) 0.9 Eosinophils # (Auto) 0.2 Basophils # (Auto) 0.0 CBC Comment AUTO DIFF Differential Total Cells 100 Counted Neutrophils % (Manual) 77 Band Neutrophils % 5 Lymphocytes % 11 Monocytes % 7 Neutrophils # (Manual) 7.3 Differential Comment FINAL DIFF MANUAL Atypical Lymphocytes Platelet Estimate NORMAL Platelet Morphology Comment NORMAL Red Cell Morphology Comment NORMAL Sodium Level 139 Potassium Level 3.4 Chloride Level 103 Carbon Dioxide Level 26.2 Anion Gap 10 Blood Urea Nitrogen 17 Creatinine 0.64 Estimat Glomerular Filtration 134 Rate Random Glucose 111 Calcium Level 8.6 Radiology Last Impressions Chest X-Ray 06/30/172305 Signed Impressions: Service Date/Time: Friday, June 30, 2017 23:10 - CONCLUSION: No acute disease. Álvaro Franco MD Abdomen/Pelvis CT 06/30/172305 Signed Impressions: Service Date/Time: Saturday, July 01, 2017 00:39 - CONCLUSION: 1. Acute appendicitis with inflammatory change in the right lower quadrant with abnormal tubular structure with multiple calcified appendicoliths. There is no free air or drainable fluid collection. 2. Mild ileus bowel gas pattern. 3. Mild hepatic steatosis. Álvaro Franco MD Narrative Exam NAD Abd: significantly distended, post op ttp, inc c/d/i, KRZYSZTOF ss cloudy drainage A/P Assessment and Plan 47 yo M POD 3 s/p lap appy for perforated appendicitis with generalized peritonitis Persistent ileus, slightly improved. Reglan. Simethicone. Cont IVF, IV antibiotics. Start fulls. DVT proph: SCDs. Jose Martin. Aaron Edwards MD Jul 04, 2017 12:18
[2017-07-04] MEDS: POTASSIUM CHLOR 20 MEQ PREMIX 100 ML IV SCH ×2 (12:30→13:22)
[2017-07-04] MEDS: ENOXAPARIN SODIUM 40 MG/0.4 ML SYRINGE SQ SCH (12:31)
[2017-07-04] MEDS: CALCIUM CARBONATE 500 MG CHEWABLE TAB CHEW PRN ×2 (13:21→20:35)
[2017-07-04 16:00] VITALS: BP 140/84; PULSE 98; RESP 18; TEMP 97.7; O2SAT 94
[2017-07-04 20:15] VITALS: BP 156/91; PULSE 92; RESP 18; TEMP 98.3; O2SAT 96
[2017-07-05 00:20] VITALS: BP 131/75; PULSE 91; RESP 18; TEMP 99.5; O2SAT 97
[2017-07-05] MEDS: PIPERACIL-TAZO 3.375 GM PREMIX 50 ML IV SCH ×3 (01:49→16:00)
[2017-07-05] MEDS: SODIUM CHLOR 0.9% 1000 ML INJ 1,000 ML IV SCH ×2 (02:31→15:47)
[2017-07-05] MEDS: METOCLOPRAMIDE HCL 10 MG/2 ML VIAL IV PUSH SCH ×2 (04:21→15:58)
[2017-07-05 08:00] VITALS: BP 139/79; PULSE 73; RESP 18; TEMP 99.1; O2SAT 96
[2017-07-05] MEDS: SODIUM CHLORIDE 0.9% FLUSH 10 ML FLUSH IV FLUSH SCH (09:00)
[2017-07-05] MEDS: ENOXAPARIN SODIUM 40 MG/0.4 ML SYRINGE SQ SCH (11:19)
[2017-07-05 12:00] VITALS: BP 148/84; PULSE 73; RESP 18; TEMP 97; O2SAT 96
[2017-07-05] MEDS ORDERED: METR-1 PO (13:14)
[2017-07-05] MEDS ORDERED: NORC5TAB PO (13:14)
[2017-07-05] MEDS ORDERED: LEVO750T3 PO (13:14)
--- NOTE | 2017-07-05 13:17 | HHI.DS ---
Discharge Summary Admission Date Jul 03, 2017 at 12:33 Discharge Date: Jul 05, 2017 Admitting Diagnosis Appendicitis (1) Appendicitis, acute, with generalized peritonitis Diagnosis: Principal Procedures Laparoscopic appendectomy with laparoscopic washout Brief History Mr. Claudio is a 47 yo M who presents with abdominal pain present since Saturday associated with nausea and emesis. It is currently localized in the right lower quadrant. He has had some sort of bacterial GI infection in the past and thought that this was occurring; however, the pain persisted and he presented to the emergency department. He was noted to have leukocytosis and right lower quadrant tenderness. CT scan of the abdomen and pelvis reveals acute appendicitis. He denies past surgical history on the abdomen. His son underwent appendectomy here in 3 or 4 months ago. CBC/BMP: 07/04/17 0703 07/04/17 0703 Significant Findings Laboratory Tests Test 07/04/17 07:03 Hemoglobin 12.6 GM/DL (13.0-17.0) Hematocrit 37.5 % (39.0-51.0) Neutrophils (%) (Auto) 79.5 % (16.0-70.0) Lymphocytes (%) (Auto) 8.7 % (9.0-44.0) Monocytes (%) (Auto) 9.9 % (0.0-8.0) Lymphocytes # (Auto) 0.8 TH/MM3 (1.0-4.8) Neutrophils % (Manual) 77 % (16-70) Potassium Level 3.4 MEQ/L (3.5-5.1) Random Glucose 111 MG/DL (74-106) PE at Discharge NAD Abd: Mild distention, post op ttp, inc c/d/i, KRZYSZTOF ss cloudy drainage Hospital Course The patient had a postoperative ileus as expected after perforated appendicitis with generalized peritonitis. He tolerated some clear liquids and then full liquids and had small bowel movements. His pain was well controlled. KRZYSZTOF drain continued to have output which was somewhat cloudy. On the day of discharge he felt well and denied nausea and desired discharge home. Pt Condition on Discharge: Good Discharge Disposition: Discharge Home Discharge Instructions DIET: Follow Instructions for: As Tolerated, No Restrictions Activities you can perform: See Additionl Instruction Other Activity Instructions: Ok to shower. No driving. No heavy lifting. Follow up Referrals: Surgical - 1 Week with Aaron Edwards MD New Medications: Hydrocodone-Acetaminophen (Artesian) 5-325 mg Tab 1-2 TAB PO Q6H PRN PAIN #25 Ref 0 TAB Levofloxacin (Levofloxacin) 750 Mg Tablet 750 MG PO DAILY Infection #5 Ref 0 TAB Metronidazole (Flagyl) 500 Mg Tab 500 MG PO TID Infection #15 Ref 0 TAB Continued Medications: Amlodipine (Amlodipine) 5 Mg Tab 5 MG PO HS Blood Pressure Management #30 Ref 0 TAB Hydrochlorothiazide (Hydrochlorothiazide) 25 Mg Tab 25 MG PO DAILY #30 Ref 0 TAB Lisinopril (Lisinopril) 20 Mg Tab 20 MG PO DAILY #30 Ref 0 TAB Lovastatin (Lovastatin) 20 Mg Tab 20 MG PO DAILY Cholesterol Management #30 Ref 0 TAB Metformin (Metformin) 500 Mg Tab 500 MG PO DAILY With a meal Blood Sugar Management #30 Ref 0 TAB Topiramate (Topamax) 50 Mg Tab 50 MG PO BID Control Seizures #60 Ref 0 TAB Aaron Edwards MD Jul 05, 2017 13:17
== END 2017-07-05 16:27 | disposition home or self-care (01) | DRG 339 ==
LOC: NEPE 22:34 → INTOOBSV 07-01 01:34 → NEDA 07-01 01:34 → N06A 07-01 03:14 → OBSVTOIN 07-03 12:33
PROVIDERS: ADMIT Surgery; ATTEND Surgery
PROC: 0DTJ4ZZ Resection of Appendix, Percutaneous Endoscopic Approach (ICD-10-PCS; principal; 2017-07-01 06:26)
DX: K35.2 Acute appendicitis with generalized peritonitis (principal); Z68.41 Body mass index [BMI] 40.0-44.9, adult; K56.7 Ileus, unspecified; K91.89 Other postprocedural complications and disorders of digestive system; E66.9 Obesity, unspecified; I10 Essential (primary) hypertension; E78.5 Hyperlipidemia, unspecified
CPT/HCPCS: 71010; 74177; 76937; 80048; 80053; 80307; 81001; 83605; 83690; 83735; 85007; 85025; 85027; 85652; 86140; 88304; 93005; 96365; 96366; 96372; 96375; 96376; G0378; J0131; J1650; J1885; J2250; J2270; J2405; J2543; J2765; J3010; J3480; J7030; J7040; Q9967